=== PATIENT | male | born 1995 | race Caucasian/White ===

== ENCOUNTER 2017-03-04 22:28 | Emergency (ER) | payer MEDICAID ==
[2017-03-04] MEDS ORDERED: Ondansetron 4 MG/2 ML SDV IVPUSH ONE (22:56)
[2017-03-04] MEDS ORDERED: LORazepam 2 MG/ML MDV IVPUSH ONE ×2 (22:56→23:42)
[2017-03-04] MEDS ORDERED: Sodium Chloride 0.9% 1,000 ML IV SCH (23:00)
--- NOTE | 2017-03-04 23:20 | EDM.PDOCBH ---
ED HPI GENERAL MEDICAL PROBLEM - General Chief Complaint: Drug or Alcohol Abuse Stated Complaint: HEART Time Seen by Provider: 03/04/17 22:57 Source of Information: Reports: Patient History Limitations: Reports: No Limitations - History of Present Illness INITIAL COMMENTS - FREE TEXT/NARRATIVE: pt arrived hyperventilating and feeling tingly in his hands and arms. He did some me lso drank about 8 drinks. He feels like his heart is pounding and he has tightness in his chest..He also smoked alot of pot throughout the day. Onset: Today Duration: Hour(s): Location: Reports: Chest Associated Symptoms: Reports: Chest Pain, Shortness of Breath, Other (pt is hyperventilating and he is feeling tightness in his chest. ) Chest Pain Score (Numeric/FACES): 4 - Related Data Allergies Allergy/AdvReac Type Severity Reaction Status Date / Time No Known Allergies Allergy Verified 03/04/17 22:42 Home Meds: Home Meds NK [No Known Home Meds] 03/04/17 [History] Past Medical History - Past Health History Medical/Surgical History: Denies Medical/Surgical History Social & Family History - Tobacco Use Smoking Status *Q: Current Every Day Smoker Years of Tobacco use: 6 Packs/Tins Daily: 0.5 - Recreational Drug Use Recreational Drug Use: Yes Drug Use in Last 12 Months: Yes Recreational Drug Type: Reports: Marijuana/Hashish, Methamphetamine Recreational Drug Use Frequency: Weekly ED ROS GENERAL - Review of Systems Review Of Systems: See Below Constitutional: Reports: No Symptoms HEENT: Reports: No Symptoms Respiratory: Reports: Shortness of Breath Cardiovascular: Reports: Palpitations, Other (pt feels like his heart is pounding alot. ) Endocrine: Reports: No Symptoms GI/Abdominal: Reports: No Symptoms : Reports: No Symptoms Musculoskeletal: Reports: No Symptoms Skin: Reports: No Symptoms Neurological: Reports: No Symptoms ED EXAM, BEHAVIORAL HEALTH - Physical Exam Exam: See Below Text/Narrative:: pt drank today, did meth and smoked alot of marajauna. He is here very sob and he is obviously hyprventilating. . He was complaining of tingling in both arms. He was extremely hyper. Exam Limited By: No Limitations General Appearance: Alert, Anxious, Mild Distress, Other (pupils equal and reactive to lite. ) Ears: Normal TMs Nose: Normal Inspection Head: Atraumatic Neck: Normal Inspection Respiratory/Chest: No Respiratory Distress, Other (pt was hyperventilating. ) Cardiovascular: Regular Rate, Rhythm, Tachycardia GI/Abdominal: Soft, Non-Tender, Other (pt was feeling nauseated. ) (Male) Exam: Deferred Rectal (Males) Exam: Deferred Back Exam: Normal Inspection Extremities: Normal Inspection Neurological: Alert, Normal Cognition, Oriented x 3 Psychiatric: Alert, Normal Cognition, Agitated COURSE, BEHAVIORAL HEALTH COMP - Course Vital Signs: Last Vital Signs Temp 37.4 C 03/04/17 22:34 Pulse 73 03/04/17 23:23 Resp 16 03/05/17 00:33 BP 141/67 H 03/05/17 00:33 Pulse Ox 100 03/05/17 00:33 Orders, Labs, Meds: Active Orders 24 hr Category Date Time Status EKG Documentation Completion [RC] ASDIRECTED Care 03/04/17 22:55 Active Chest 1V Frontal [CR] Stat Exams 03/05/17 00:31 Taken DRUG SCREEN, URINE [URCHEM] Stat Lab 03/05/17 00:48 Uncollected Sodium Chloride 0.9% [Normal Saline] 1,000 ml Med 03/04/17 23:00 Active IV ASDIRECTED EKG 12 Lead [EK] Routine Ther 03/04/17 22:55 Ordered Medication Orders Sodium Chloride (Normal Saline) 1,000 mls @ 999 mls/hr IV ASDIRECTED [facility] Last Admin: 03/04/17 23:14 Dose: 999 mls/hr Laboratory Tests 03/04/17 03/04/17 03/04/17 Range/Units 23:03 23:03 23:03 WBC 7.7 (4.5-11.0) K/uL RBC 4.45 (4.30-5.90) M/uL Hgb 13.6 (12.0-15.0) g/dL Hct 39.1 L (40.0-54.0) % MCV 88 (80-98) fL MCH 31 (27-31) pg MCHC 35 (32-36) % Plt Count 217 (150-400) K/uL Neut % (Auto) 41 (36-66) % Lymph % (Auto) 47 H (24-44) % [place] % (Auto) 9 H (2-6) % Eos % (Auto) 1 L (2-4) % Baso % (Auto) 1 (0-1) % Sodium 142 (140-148) mmol/L Potassium 3.6 (3.6-5.2) mmol/L Chloride 107 (100-108) mmol/L Carbon Dioxide 25 (21-32) mmol/L Anion Gap 10.4 (5.0-14.0) mmol/L BUN 19 H (7-18) mg/dL Creatinine 0.8 (0.8-1.3) mg/dL Est Cr Clr Drug Dosing 124.78 mL/min Estimated GFR (MDRD) > 60 (>60) Glucose 113 H (74-106) mg/dL Calcium 8.7 (8.5-10.1) mg/dL Total Bilirubin 0.4 (0.2-1.0) mg/dL AST 22 (15-37) U/L ALT 41 (12-78) U/L Alkaline Phosphatase 51 (46-116) U/L Troponin I < 0.017 (0.000-0.056) ng/mL Total Protein 7.2 (6.4-8.2) g/dL Albumin 4.1 (3.4-5.0) g/dL Globulin 3.1 (2.3-3.5) g/dL Albumin/Globulin Ratio 1.3 (1.2-2.2) Urine Color Urine Appearance Urine pH (4.5-8.0) Ur Specific [place] (1.008-1.030) Urine Protein (NEGATIVE) mg/dL Urine Glucose (UA) (NEGATIVE) mg/dL Urine Ketones (NEGATIVE) mg/dL Urine Occult Blood (NEGATIVE) Urine Nitrite (NEGAITVE) Urine Bilirubin (NEGATIVE) Urine Urobilinogen (NORMAL) mg/dL Ur Leukocyte Esterase (NEGATIVE) Urine RBC (0-5) Urine WBC (0-5) Ur Epithelial Cells Amorphous Sediment Urine Bacteria Urine Mucus Ethyl Alcohol mg/dL 03/04/17 03/04/17 Range/Units 23:30 23:47 WBC (4.5-11.0) K/uL RBC (4.30-5.90) M/uL Hgb (12.0-15.0) g/dL Hct (40.0-54.0) % MCV (80-98) fL MCH (27-31) pg MCHC (32-36) % Plt Count (150-400) K/uL Neut % (Auto) (36-66) % Lymph % (Auto) (24-44) % [place] % (Auto) (2-6) % Eos % (Auto) (2-4) % Baso % (Auto) (0-1) % Sodium (140-148) mmol/L Potassium (3.6-5.2) mmol/L Chloride (100-108) mmol/L Carbon Dioxide (21-32) mmol/L Anion Gap (5.0-14.0) mmol/L BUN (7-18) mg/dL Creatinine (0.8-1.3) mg/dL Est Cr Clr Drug Dosing mL/min Estimated GFR (MDRD) (>60) Glucose (74-106) mg/dL Calcium (8.5-10.1) mg/dL Total Bilirubin (0.2-1.0) mg/dL AST (15-37) U/L ALT (12-78) U/L Alkaline Phosphatase (46-116) U/L Troponin I (0.000-0.056) ng/mL Total Protein (6.4-8.2) g/dL Albumin (3.4-5.0) g/dL Globulin (2.3-3.5) g/dL Albumin/Globulin Ratio (1.2-2.2) Urine Color Yellow Urine Appearance Clear Urine pH 6.0 (4.5-8.0) Ur Specific [place] 1.020 (1.008-1.030) Urine Protein Negative (NEGATIVE) mg/dL Urine Glucose (UA) Normal (NEGATIVE) mg/dL Urine Ketones Negative (NEGATIVE) mg/dL Urine Occult Blood Negative (NEGATIVE) Urine Nitrite Negative (NEGAITVE) Urine Bilirubin Negative (NEGATIVE) Urine Urobilinogen Normal (NORMAL) mg/dL Ur Leukocyte Esterase Negative (NEGATIVE) Urine RBC Not seen (0-5) Urine WBC Not seen (0-5) Ur Epithelial Cells Not seen Amorphous Sediment Not seen Urine Bacteria Not seen Urine Mucus Not seen Ethyl Alcohol < 3 mg/dL Medications Generic Name Dose Route Start Last Admin Trade Name Freq PRN Reason Stop Dose Admin Sodium Chloride 1,000 mls @ 999 mls/hr 03/04/17 23:00 03/04/17 23:14 Normal Saline IV 999 mls/hr ASDIRECTED [facility] Administration Discontinued Medications Generic Name Dose Route Start Last Admin Trade Name Julius PRN Reason Stop Dose Admin Ketorolac Tromethamine 30 mg 03/04/17 23:57 03/05/17 00:09 Toradol IVPUSH 03/04/17 23:58 30 mg ONETIME ONE Administration Lorazepam 0.5 mg 03/04/17 22:56 03/04/17 23:18 Ativan IVPUSH 03/04/17 22:57 0.5 mg ONETIME ONE Administration Lorazepam 0.5 mg 03/04/17 23:42 03/04/17 23:52 Ativan IVPUSH 03/04/17 23:43 0.5 mg ONETIME ONE Administration Ondansetron HCl 4 mg 03/04/17 22:56 03/04/17 23:15 Zofran IVPUSH 03/04/17 22:57 4 mg ONETIME ONE Administration Medical Clearance: 03/05/17 00:51 pt was found to have a normal ekg. His cardiac enzymes are normal. He was given a mg of ativan and he has calmed down good with his breathing. He was given a liter of fluid. Departure - Departure Time of Disposition: 01:07 Disposition: Home, Self-Care 01 Condition: Fair Clinical Impression: Methamphetamine abuse, Cannabis abuse - Discharge Information Referrals: PCP,None [Primary Care Provider] - Forms: ED Department Discharge Care Plan Goals: avoid using street drugs, push fluids, tylenol for chest tightness. - My Orders Last 24 Hours: My Active Orders 03/04/17 22:55 EKG Documentation Completion [RC] ASDIRECTED EKG 12 Lead [EK] Routine 03/04/17 23:00 Sodium Chloride 0.9% [Normal Saline] 1,000 ml IV ASDIRECTED 03/05/17 00:31 Chest 1V Frontal [CR] Stat 03/05/17 00:48 DRUG SCREEN, URINE [URCHEM] Stat - Assessment/Plan Last 24 Hours: My Active Orders 03/04/17 22:55 EKG Documentation Completion [RC] ASDIRECTED EKG 12 Lead [EK] Routine 03/04/17 23:00 Sodium Chloride 0.9% [Normal Saline] 1,000 ml IV ASDIRECTED 03/05/17 00:31 Chest 1V Frontal [CR] Stat 03/05/17 00:48 DRUG SCREEN, URINE [URCHEM] Stat
[2017-03-04 23:24] VITALS: BP 141/67
[2017-03-04] MEDS ORDERED: Ketorolac 30 MG/ML SDV IVPUSH ONE (23:57)
--- NOTE | 2017-03-07 08:56 | CR ---
Chest 1V Frontal INDICATION: sob FINDINGS: Negative AP portable chest x-ray.
== END 2017-03-05 01:35 | disposition home or self-care (01) ==
LOC: JP.ED 22:28
DX: F12.10 Cannabis abuse, uncomplicated (principal); F15.10 Other stimulant abuse, uncomplicated; F17.210 Nicotine dependence, cigarettes, uncomplicated
CPT/HCPCS: 36415; 71010; 80053; 80305; 81001; 84484; 85025; 93005; 96361; 96374; 96375; 96376; 99285; G0480; J1885; J2060; J2405; J7040; 93010; 99284

== ENCOUNTER 2017-03-05 20:54 | Emergency (ER) | payer MEDICAID ==
[2017-03-05] MEDS ORDERED: LORazepam 1 MG Tab PO ONE (22:04)
--- NOTE | 2017-03-05 23:23 | EDM.PDOC ---
ED HPI GENERAL MEDICAL PROBLEM - General Chief Complaint: Chest Pain Stated Complaint: CHEST PAIN Time Seen by Provider: 03/05/17 21:05 Source of Information: Reports: Patient History Limitations: Reports: Intoxication - History of Present Illness INITIAL COMMENTS - FREE TEXT/NARRATIVE: Patient returns to emergency department complaining of recurrent chest tightness and anxiety after smoking marijuana. Patient is limited historian-- quite tangential in speech w/ paucity of content and slow to respond c/w his history of recent marijuana use. He was seen last night for the exact same complaint after using marijuana and methamphetamine. Patient is an infrequent user of meth, but has a long history of marijuana abuse, and a remote history of prescription drub abuse, no history of IVDU. He reports symptoms since he smoked marijuana today about 1800. He describes chest tightness and pressure, hung. when he tried to sleep. Stated it was like "..something sitting on my chest." Symptoms are lower left chest without radiation or migration. No respiphasic pain, no change with exertion or rest, excepting that it was acutely worse when he was trying to fall asleep and was becoming increasingly anxious over a concern of a lump on his left testicle. He noted nausea when he becomes anxious. He made himself vomit, thinking it would improve his symptoms. He also tried self-medicating w/ EtOH, drinking 6 shots. He seems to have had some residual anxiety from last nights episode as well, as he started drinking at ~9a.m. He states he was told by his mother that he had a heart murmur as a child, possibly at , but is otherwise unable to recall any details of what was told of him. He had no restrictions or symptoms growing up that he recalls, and no history of heart surgery. He does not know if he has ever had an echocardiogram. He denies any history of exertional chest pain, syncope, or palpitations. He has poor exercise tolerance, stating he becomes winded if he has to run a half mile. He denies orthopnea, PND, fatigue, nocturia, or pedal edema. He states chest pressure last night was relieved. Duration: Intermittent, Recurring, Waxing/Waning Location: Reports: Chest Quality: Reports: Pressure, Same as Previous Episode. Denies: Burning, Sharp Improves with: Reports: None Worsens with: Reports: Rest Context: Denies: Exercise Associated Symptoms: Reports: Diaphoresis, Nausea/Vomiting. Denies: Confusion, Cough, Fever/Chills, Headaches, Loss of Appetite, Malaise, Seizure, Shortness of Breath, Syncope Left Chest Pain Score (Numeric/FACES): 4 - Related Data Allergies Allergy/AdvReac Type Severity Reaction Status Date / Time No Known Allergies Allergy Verified 03/05/17 21:21 Home Meds: Home Meds NK [No Known Home Meds] 03/04/17 [History] Past Medical History - Past Health History Medical/Surgical History: Denies Medical/Surgical History Other Psychiatric History: DRUG AND ALCOHOL ABUSE Social & Family History - Tobacco Use Smoking Status *Q: Unknown Ever Smoked Years of Tobacco use: 6 Packs/Tins Daily: 0.5 - Recreational Drug Use Recreational Drug Use: Yes Drug Use in Last 12 Months: Yes Recreational Drug Type: Reports: Marijuana/Hashish, Methamphetamine Recreational Drug Use Frequency: Weekly ED ROS GENERAL - Review of Systems Review Of Systems: See Below Constitutional: Denies: Fever, Chills, Malaise, Fatigue, Diaphoresis, Decreased Appetite HEENT: Reports: No Symptoms. Denies: Throat Pain Respiratory: Denies: Shortness of Breath, Wheezing, Pleuritic Chest Pain, Cough , Sputum, Hemoptysis Cardiovascular: Denies: Blood Pressure Problem, Claudication, Dyspnea on Exertion, Edema, Lightheadedness, Orthopnea, PND Endocrine: Reports: No Symptoms GI/Abdominal: Denies: Abdominal Pain, Anorexia, Black Stool, Bloody Stool, Diarrhea : Reports: Other (noted lump in L testicle x 1 mo) Musculoskeletal: Denies: Neck Pain, Shoulder Pain, Arm Pain, Back Pain Neurological: Reports: Paresthesia (noted more yesterday than today). Denies: Seizure, Syncope, Difficulty Walking Psychiatric: Reports: Anxiety. Denies: Depression Hematologic/Lymphatic: Reports: No Symptoms Immunologic: Reports: No Symptoms ED EXAM, GENERAL - Physical Exam Exam: See Below Free Text/Narrative:: Alert, oriented, but limited historian as noted. Anxious appearing but in no distress, breathing comfortably on room air. Lungs are CTA w/o rales. No JVD or HJR. Heart exam reveals a jauregui-systolic murmur, grade II, best heard with tracy over LUSB. ? radiation to R carotid A v. bruit. Murmur decreases with squatting, increased when standing, and equivocal change w/ valsalva. No precardial heave noted, and area of dullness to percussion over heart with normal size. Distal capillary refill is normal. No splinter hemorrhages. Radial, dorsalis, and posterior tibial artery pulses are normal. No evidence of pretibial/ankle/presacral edema. Scrotal exam shows a 5x5mm slightly tender soft/fleshy mass adjacent to, but clearly separate from, left testicle. Exam Limited By: Intoxication General Appearance: Alert, WD/WN, No Apparent Distress, Anxious Eye Exam: Bilateral Eye: EOMI, PERRL Ears: Normal External Exam, Normal Canal, Hearing Grossly Normal, Normal TMs Nose: Normal Inspection Throat/Mouth: Normal Inspection, Normal Lips, Normal Teeth, Normal Gums, Normal Oropharynx, Normal Voice, No Airway Compromise. No: Perioral Cyanosis Head: Atraumatic, Normocephalic. No: Facial Swelling Neck: Normal Inspection, Supple, Non-Tender, Full Range of Motion, Carotid Bruit. No: Lymphadenopathy (R), Lymphadenopathy (L), Thyromegaly Respiratory/Chest: No Respiratory Distress, Lungs Clear, Normal Breath Sounds, No Accessory Muscle Use, Chest Non-Tender. No: Respiratory Distress, Rales, Rhonchi, Wheezing, Accessory Muscle Use, Retractions, Prolonged Expiration Cardiovascular: Normal Peripheral Pulses, Regular Rate, Rhythm, No Edema, No Rub , Tachycardia, Systolic Murmur. No: JVD Peripheral Pulses: 4+: Carotid (L), Carotid (R), Radial (L), Radial (R), Posterior Tibial (L), Posterior Tibial (R), Dorsalis Pedis (L), Dorsalis Pedis ( R) GI/Abdominal: Normal Bowel Sounds, Soft, Non-Tender, No Organomegaly, No Distention, No Abnormal Bruit, No Mass, Pelvis Stable (Male) Exam: No Hernia, Normal Inspection, Cremasteric Reflex, Other (L scrotum w/ 5x5mm slightly tender soft mass ?varicoceole v. epidiumal ). No: Inguinal Lymphadenopathy, Scrotal Swelling, Scrotum Tenderness (L), Scrotum Tenderness (R), Testicular Mass, Testicular Tenderness (L), Testicular Tenderness (R) Course - Vital Signs Last Recorded V/S: Last Vital Signs Temp 37.7 C 03/05/17 21:13 Pulse 78 03/05/17 23:06 Resp 18 03/05/17 23:06 BP 125/71 03/05/17 23:06 Pulse Ox 99 03/05/17 23:06 - Orders/Labs/Meds Meds: Medications Discontinued Medications Generic Name Dose Route Start Last Admin Trade Name Julius PRN Reason Stop Dose Admin Lorazepam 1 mg 03/05/17 22:04 03/05/17 22:11 Ativan PO 03/05/17 22:05 1 mg ONETIME ONE Administration - Re-Assessments/Exams Free Text/Narrative Re-Assessment/Exam: 03/05/17 23:54 Patient much improved, appears comfortable and chest tightness all but resolved. Departure - Departure Time of Disposition: 00:08 Disposition: Home, Self-Care 01 Condition: Good Clinical Impression: Chest discomfort, Heart murmur on physical examination, Marijuana intoxication , Panic attack, Acute hyperactive cannabis intoxication delirium, Methamphetamine abuse, Abnormal ECG, Cannabis abuse Instructions: Nonspecific Chest Pain, [id number] Referrals: PCP,None [Primary Care Provider] - Forms: ED Department Discharge Additional Instructions: Do not use/abuse methamphetamine, marijuana, or other drugs or alcohol. No driving tonight or while intoxicated. Follow up with hvac instructor and urologist. Return if chest pain recurs, difficulty breathing, or other concerns. Get a regular doctor. - Assessment/Plan Assessment:: Chest pain is unlikely related to ECG findings, which may be due to cardiomyopathy, but given his age may be normal juvenile pattern. His CXR from last night shows no evidence of cardiomegaly, aorta abnormality, or CHF. His symptoms are precipitated by marijuana use with typical acute anxiety syndrome, and not suggestive of spontaneous pneumothorax. He has nothing to suggest AICS/ AMI/UA as etiology, and he does not manifest s/sx c/w PE either. His scrotal mass is c/w varicocele but cannot clearly differentiate if from his epididmus on exam. Plan: Needs an outpatient evaluation of his murmur/possible ECG abnormality by hvac instructor. He also needs to see a urologist about scrotal lump.
[2017-03-06 00:28] VITALS: BP 132/62
== END 2017-03-06 00:33 | disposition home or self-care (01) ==
LOC: JP.ED 20:54
DX: F41.0 Panic disorder [episodic paroxysmal anxiety] (principal); N50.9 Disorder of male genital organs, unspecified; R01.1 Cardiac murmur, unspecified; F12.121 Cannabis abuse with intoxication delirium; F90.9 Attention-deficit hyperactivity disorder, unspecified type; F15.10 Other stimulant abuse, uncomplicated; R94.31 Abnormal electrocardiogram [ECG] [EKG]
CPT/HCPCS: 99284; A9270; 99283

== ENCOUNTER 2017-03-06 11:50 | Emergency (ER) | payer MEDICAID ==
[2017-03-06 12:36] VITALS: BP 118/78
--- NOTE | 2017-03-06 12:36 | EDM.PDOC ---
ED HPI GENERAL MEDICAL PROBLEM - General Chief Complaint: General Stated Complaint: CHEST PAIN Time Seen by Provider: 03/06/17 12:40 Source of Information: Reports: Patient History Limitations: Reports: No Limitations - History of Present Illness INITIAL COMMENTS - FREE TEXT/NARRATIVE: 21-year-old male into the third consecutive day with anxiety and chest pain. He stopped doing methamphetamine 2 days ago. He was told yesterday that he has a heart murmur and is very scared. He has no shortness of breath. The chest pain in his lower anterior slightly on the left side, somewhat worse with breathing. Severity: Mild Upper Abdomen Pain Score (Numeric/FACES): 5 - Related Data Allergies Allergy/AdvReac Type Severity Reaction Status Date / Time No Known Allergies Allergy Verified 03/06/17 12:39 Home Meds: Home Meds NK [No Known Home Meds] 03/04/17 [History] Past Medical History - Past Health History Medical/Surgical History: Denies Medical/Surgical History Other Psychiatric History: DRUG AND ALCOHOL ABUSE Social & Family History - Tobacco Use Smoking Status *Q: Current Every Day Smoker Years of Tobacco use: 4 Packs/Tins Daily: 0.3 - Caffeine Use Caffeine Use: Reports: None - Recreational Drug Use Recreational Drug Use: Yes Drug Use in Last 12 Months: Yes Recreational Drug Type: Reports: Marijuana/Hashish, Methamphetamine Recreational Drug Use Frequency: Weekly ED ROS GENERAL - Review of Systems Review Of Systems: See Below Constitutional: Denies: Fever, Chills, Malaise, Weakness HEENT: Reports: No Symptoms Respiratory: Reports: Pleuritic Chest Pain. Denies: Shortness of Breath Cardiovascular: Reports: Chest Pain GI/Abdominal: Denies: Abdominal Pain, Nausea, Vomiting Skin: Reports: No Symptoms Neurological: Denies: Headache ED EXAM, GENERAL - Physical Exam Exam: See Below Exam Limited By: No Limitations General Appearance: Alert, Anxious Eye Exam: Bilateral Eye: Normal Inspection Respiratory/Chest: No Respiratory Distress, Lungs Clear Cardiovascular: Regular Rate, Rhythm, Systolic Murmur (Very faint systolic murmur) GI/Abdominal: Soft, Non-Tender Course - Vital Signs Last Recorded V/S: Last Vital Signs Temp 97.7 F 03/06/17 12:35 Pulse 95 03/06/17 12:35 Resp 20 03/06/17 12:35 BP 118/78 03/06/17 12:35 Pulse Ox 100 03/06/17 12:35 - Re-Assessments/Exams Free Text/Narrative Re-Assessment/Exam: 03/06/17 12:47 While the patient was being registered and evaluated by nursing, his records were reviewed for the last 2 days. No further workup is necessary and he was reassured and strongly encouraged not to do meth in the future. The very faint systolic murmur is likely physiologic and not harmful, he can follow up with his primary care for any further workup if he feels necessary. Departure - Departure Time of Disposition: 12:55 Disposition: Home, Self-Care 01 Condition: Good Clinical Impression: Atypical chest pain, Methamphetamine abuse - Discharge Information Instructions: Stimulant Use Disorder-Methamphetamines Referrals: PCP,None [Primary Care Provider] - Forms: ED Department Discharge Care Plan Goals: Increase activity as tolerated and try not to worry about symptoms. Avoid any further methamphetamine use.
== END 2017-03-06 12:54 | disposition home or self-care (01) ==
LOC: JP.ED 11:50
DX: R07.89 Other chest pain (principal); F15.10 Other stimulant abuse, uncomplicated; F17.210 Nicotine dependence, cigarettes, uncomplicated
CPT/HCPCS: 99284; 99285

== ENCOUNTER 2017-03-06 21:00 | Emergency (ER) | payer MEDICAID ==
--- NOTE | 2017-03-06 23:42 | EDM.PDOCBH ---
ED HPI GENERAL MEDICAL PROBLEM - General Chief Complaint: Chest Pain Stated Complaint: EVAL Time Seen by Provider: 03/06/17 21:30 Source of Information: Reports: Patient History Limitations: Reports: No Limitations - History of Present Illness INITIAL COMMENTS - FREE TEXT/NARRATIVE: 21-year-old male who is been in the emergency room now 4 times over the last several days, he is a regular methamphetamine user and was experiencing chest pain. Workups were negative and the patient was reassured, however he returns tonight very anxious and claiming that he may hurt himself. Now that he has actually registered and in the exam room he says he wouldn't hurt himself but needs some medicine for anxiety and depression. He wants to get started on some medication and wants to talk to somebody. He is cooperative. He has been on medicine in the past but stopped them because he wasn't sure they were working. His history and answers are not consistent, he told me that he is living with a friend and his mother lives across the street but he told the nurse that he was homeless. Onset: Unknown/Unsure Associated Symptoms: Reports: Chest Pain, Shortness of Breath (Intermittent). Denies: Cough, Headaches, Nausea/Vomiting Left Chest Pain Score (Numeric/FACES): 1 - Related Data Allergies Allergy/AdvReac Type Severity Reaction Status Date / Time No Known Allergies Allergy Verified 03/06/17 21:25 Home Meds: Home Meds NK [No Known Home Meds] 03/04/17 [History] Past Medical History - Past Health History Medical/Surgical History: Denies Medical/Surgical History Cardiovascular History: Reports: Heart Murmur Psychiatric History: Reports: Anxiety, Depression Other Psychiatric History: DRUG AND ALCOHOL ABUSE, HX OF INPT PSYCH [place] Social & Family History - Tobacco Use Smoking Status *Q: Unknown Ever Smoked Years of Tobacco use: 4 Packs/Tins Daily: 0.3 - Caffeine Use Caffeine Use: Reports: None - Recreational Drug Use Recreational Drug Use: Yes Drug Use in Last 12 Months: Yes Recreational Drug Type: Reports: Marijuana/Hashish, Methamphetamine Recreational Drug Use Frequency: Weekly ED ROS GENERAL - Review of Systems Review Of Systems: See Below Constitutional: Reports: Malaise. Denies: Fever, Chills Respiratory: Reports: Pleuritic Chest Pain. Denies: Shortness of Breath Cardiovascular: Reports: Chest Pain GI/Abdominal: Denies: Abdominal Pain, Hematemesis, Nausea, Vomiting Skin: Reports: No Symptoms Neurological: Denies: Headache Psychiatric: Reports: Anxiety, Depression ED EXAM, BEHAVIORAL HEALTH - Physical Exam Exam: See Below Exam Limited By: No Limitations General Appearance: Alert, No Apparent Distress Eye Exam: Bilateral Eye: Normal Inspection Respiratory/Chest: No Respiratory Distress, Lungs Clear Cardiovascular: Regular Rate, Rhythm GI/Abdominal: Non-Tender Neurological: Alert, Normal Mood/Affect, Oriented x 3 Psychiatric: Alert, Flat Affect. No: Poor Eye Contact, Uncooperative Skin Exam: Warm, Dry COURSE, BEHAVIORAL HEALTH COMP - Course Vital Signs: Last Vital Signs Temp 98.6 F 03/07/17 00:30 Pulse 60 03/07/17 00:30 Resp 15 03/07/17 00:30 BP 118/67 03/07/17 00:30 Pulse Ox 100 03/07/17 00:30 Orders, Labs, Meds: Laboratory Tests 03/06/17 03/06/17 03/06/17 Range/Units 21:53 22:00 22:00 WBC 7.9 (4.5-11.0) K/uL RBC 4.17 L (4.30-5.90) M/uL Hgb 12.6 (12.0-15.0) g/dL Hct 36.8 L (40.0-54.0) % MCV 88 (80-98) fL MCH 30 (27-31) pg MCHC 34 (32-36) % Plt Count 190 (150-400) K/uL Neut % (Auto) 62 (36-66) % Lymph % (Auto) 30 (24-44) % [place] % (Auto) 7 H (2-6) % Eos % (Auto) 1 L (2-4) % Baso % (Auto) 0 (0-1) % Sodium 144 (140-148) mmol/L Potassium 3.6 (3.6-5.2) mmol/L Chloride 108 (100-108) mmol/L Carbon Dioxide 28 (21-32) mmol/L Anion Gap 7.9 (5.0-14.0) mmol/L BUN 15 (7-18) mg/dL Creatinine 0.6 L (0.8-1.3) mg/dL Est Cr Clr Drug Dosing TNP Estimated GFR (MDRD) > 60 (>60) Glucose 93 (74-106) mg/dL Calcium 8.5 (8.5-10.1) mg/dL Urine Opiates Screen Negative (NEGATIVE) Ur Oxycodone Screen Negative (NEGATIVE) Urine Methadone Screen Negative (NEGATIVE) Ur Propoxyphene Screen Negative (NEGATIVE) Ur Barbiturates Screen Negative (NEGATIVE) Ur Tricyclics Screen Negative (NEGATIVE) Ur Phencyclidine Scrn Negative (NEGATIVE) Ur Amphetamine Screen Negative (NEGATIVE) U Methamphetamines Scrn Negative (NEGATIVE) Urine MDMA Screen Negative (NEGATIVE) U Benzodiazepines Scrn Positive H (NEGATIVE) U Cocaine Metab Screen Negative (NEGATIVE) U Marijuana (THC) Screen Positive H (NEGATIVE) Re-Assessment/Re-Exam: Urine tox screen was rechecked and it is now negative for methamphetamine. CBC, BMP were stable and normal. Crisis intervention was consulted to talk with the patient. After the crisis consultation he was recommended he be started on Lexapro and will be set up to see a local mental health provider. He does not have a plan to hurt himself. He was again reassured regarding the cardiac issues. Departure - Departure Time of Disposition: 00:30 Disposition: Home, Self-Care 01 Condition: Good Clinical Impression: Depression with anxiety, Atypical chest pain - Discharge Information Referrals: PCP,None [Primary Care Provider] - Forms: ED Department Discharge Care Plan Goals: Start Lexapro 20 mg daily as prescribed. Arrangements will be made for you to see a mental health care provider in the area.
[2017-03-07 00:46] VITALS: BP 118/67
== END 2017-03-07 00:47 | disposition home or self-care (01) ==
LOC: JP.ED 21:00
DX: F41.8 Other specified anxiety disorders (principal); F17.210 Nicotine dependence, cigarettes, uncomplicated
CPT/HCPCS: 36415; 80048; 80305; 85025; 99284; 99285

== ENCOUNTER 2017-03-18 11:39 | Emergency (ER) | payer MEDICAID ==
[2017-03-18 12:16] VITALS: BP 128/75
--- NOTE | 2017-03-18 12:27 | EDM.PDOC ---
ED HPI GENERAL MEDICAL PROBLEM - General Chief Complaint: Lower Extremity Injury/Pain Stated Complaint: BURNING IN LEFT LEG Time Seen by Provider: 03/18/17 12:15 Source of Information: Reports: Patient History Limitations: Reports: No Limitations - History of Present Illness INITIAL COMMENTS - FREE TEXT/NARRATIVE: Frederic presents today with complaints of pain to left lower extremity. He reports pain for 24 hours as burning and aching. He states he is concerned he may have a blood clot. He denies injury or trauma to the leg. Patient is not obese, has no history of DVT, no family history of DVT or bleeding/clotting disorders, no edema, erythema or difference in calf/thigh diameter. Wells score = 0 Onset: Sudden Onset Date: 03/17/17 Duration: Hour(s): Location: Reports: Lower Extremity, Left Quality: Reports: Ache, Burning Severity: Moderate Improves with: Reports: None Worsens with: Reports: Movement Associated Symptoms: Reports: No Other Symptoms Left Lower Leg Pain Score (Numeric/FACES): 4 - Related Data Allergies Allergy/AdvReac Type Severity Reaction Status Date / Time No Known Allergies Allergy Verified 03/18/17 12:14 Home Meds: Home Meds NK [No Known Home Meds] 03/04/17 [History] Past Medical History - Past Health History Medical/Surgical History: Denies Medical/Surgical History Cardiovascular History: Reports: Heart Murmur Psychiatric History: Reports: Anxiety, Depression Other Psychiatric History: DRUG AND ALCOHOL ABUSE, HX OF INPT PSYCH [place] Social & Family History - Tobacco Use Smoking Status *Q: Unknown Ever Smoked Years of Tobacco use: 4 Packs/Tins Daily: 0.3 - Caffeine Use Caffeine Use: Reports: None - Recreational Drug Use Recreational Drug Use: Yes Drug Use in Last 12 Months: Yes Recreational Drug Type: Reports: Marijuana/Hashish, Methamphetamine Recreational Drug Use Frequency: Weekly Review of Systems - Review of Systems Review Of Systems: See Below Constitutional: Reports: No Symptoms Respiratory: Denies: Shortness of Breath, Wheezing, Cough, Sputum Cardiovascular: Denies: Chest Pain, Edema, Irregular Heart Rate, Lightheadedness , Palpitations, Syncope GI/Abdominal: Reports: No Symptoms Genitourinary: Reports: No Symptoms Musculoskeletal: Reports: Leg Pain, Muscle Pain, Muscle Stiffness Skin: Denies: Bruising, Rash, Erythema, Wound Neurological: Reports: No Symptoms Psychiatric: Reports: No Symptoms ED EXAM, GENERAL - Physical Exam Exam: See Below Free Text/Narrative:: Frederic is an alert and oriented 21 year old male presenting with complaints of left lower extremity pain. He denies injury to the leg. Exam Limited By: No Limitations General Appearance: Alert, WD/WN, No Apparent Distress Eye Exam: Bilateral Eye: EOMI, Normal Inspection, PERRL Ears: Normal External Exam, Normal Canal, Hearing Grossly Normal, Normal TMs Ear Exam: Bilateral Ear: Auricle Normal, Canal Normal, TM normal Nose: Normal Inspection, Normal Mucosa, No Blood Throat/Mouth: Normal Inspection, Normal Lips, Normal Oropharynx, Normal Voice, No Airway Compromise Head: Atraumatic, Normocephalic Neck: Normal Inspection, Supple, Non-Tender, Full Range of Motion. No: Lymphadenopathy (R), Lymphadenopathy (L) Respiratory/Chest: No Respiratory Distress, Lungs Clear, Normal Breath Sounds, No Accessory Muscle Use, Chest Non-Tender Cardiovascular: Normal Peripheral Pulses, Regular Rate, Rhythm, No Edema, No Murmur, No Rub Peripheral Pulses: 2+: Radial (L), Radial (R), Popliteal (L), Popliteal (R), Dorsalis Pedis (L), Dorsalis Pedis (R) GI/Abdominal: Normal Bowel Sounds, Soft, Non-Tender, No Distention, No Mass Back Exam: Normal Inspection, Full Range of Motion. No: CVA Tenderness (R), CVA Tenderness (L) Extremities: Normal Inspection, Normal Range of Motion, Non-Tender, No Pedal Edema, Normal Capillary Refill, Other (Negative Chele sign, negative straight leg lift, equal strength all extremities, full ROM to all extremities. ) Neurological: Alert, Oriented, CN II-XII Intact, Normal Cognition, Normal Gait, Normal Reflexes, No Motor/Sensory Deficits Psychiatric: Normal Affect, Normal Mood Skin Exam: Warm, Dry, Intact, Normal Color, No Rash Lymphatic: No Adenopathy Course - Vital Signs Last Recorded V/S: Last Vital Signs Temp 36.4 C 03/18/17 12:11 Pulse 99 03/18/17 12:11 Resp 15 03/18/17 12:11 BP 128/75 03/18/17 12:11 Pulse Ox 99 03/18/17 12:11 - Orders/Labs/Meds Labs: Laboratory Tests 03/18/17 03/18/17 Range/Units 12:41 12:41 WBC 6.7 (4.5-11.0) K/uL RBC 4.85 (4.30-5.90) M/uL Hgb 14.5 (12.0-15.0) g/dL Hct 42.5 (40.0-54.0) % MCV 88 (80-98) fL MCH 30 (27-31) pg MCHC 34 (32-36) % Plt Count 205 (150-400) K/uL D-Dimer, Quantitative < 100 (0.0-400.0) ng/mL Lab work reviewed, patient informed. Assessment negative for acute findings. Patient verbalizes understanding. He was provided emotional support and education on seeking help to stay clean and sober from illicit drugs and alcohol. Departure - Departure Time of Disposition: 13:39 Disposition: Home, Self-Care 01 Condition: Good Clinical Impression: Muscle pain - Discharge Information Instructions: Muscle Strain, [id number] Referrals: Aj Wooten MD [Primary Care Provider] - Forms: ED Department Discharge Additional Instructions: Your lab work today was negative. You are suffering from muscle pain/strain. It is best for you to drink plenty of water, stretch, exercise and eat healthy. Obtain and participate in weekly counseling to assist with staying clean and free of drugs. Eat a healthy diet. - Assessment/Plan Assessment:: Muscle pain/strain Left lower extremity. Plan: D-dimer negative Patient suffering from muscle pain/strain. It is best for you to drink plenty of water, stretch, exercise and eat healthy. Obtain and participate in weekly counseling to assist with staying clean and free of drugs. Eat a healthy diet. Patient instructed that he can take ibuprofen 600mg PO three times a day and/or acetaminophen 650mg PO four times a day for pain. Patient verbalized understanding.
== END 2017-03-18 13:59 | disposition home or self-care (01) ==
LOC: JP.ED 11:39
DX: S86.912A Strain of unspecified muscle(s) and tendon(s) at lower leg level, left leg, initial encounter (principal); Z86.718 Personal history of other venous thrombosis and embolism; X58.XXXA Exposure to other specified factors, initial encounter
CPT/HCPCS: 36415; 85027; 85379; 99283; 99284

== ENCOUNTER 2017-03-20 00:57 | Emergency (ER) | payer MEDICAID ==
[2017-03-20] MEDS ORDERED: LORazepam 0.5 MG Tab PO ONE ×2 (01:46→02:38)
[2017-03-20] MEDS ORDERED: Alum Hydrox/Mag Hydrox/Simeth 15 ML, Lidocaine 2% 15 ML PO ONE ×2 (01:51)
--- NOTE | 2017-03-20 02:00 | EDM.PDOC ---
ED HPI GENERAL MEDICAL PROBLEM - General Chief Complaint: Chest Pain Stated Complaint: RAPID HEART RATE Time Seen by Provider: 03/20/17 01:52 Source of Information: Reports: Patient History Limitations: Reports: No Limitations - History of Present Illness INITIAL COMMENTS - FREE TEXT/NARRATIVE: pt arrived with pain in his chest. He felt like he had a bubble in his esophagus. Onset: Today, Other (pt used meth, marjauna, opiates. ) Duration: Hour(s):, Resolved Prior to Arrival, Other ( Pt thought he was having a heart attack. ) Location: Reports: Chest Associated Symptoms: Reports: Other ( stabbing chest pain. ) Chest Pain Score (Numeric/FACES): 5 - Related Data Allergies Allergy/AdvReac Type Severity Reaction Status Date / Time No Known Allergies Allergy Verified 03/20/17 01:09 Home Meds: Home Meds Ramelteon [Rozerem] 1 tab PO DAILY 03/20/17 [History] Ranitidine HCl [Ranitidine] 1 tab PO DAILY 03/20/17 [History] Sertraline HCl [Sertraline HCl] 1 tab PO DAILY 03/20/17 [History] hydrOXYzine Pamoate [Hydroxyzine Pamoate] 1 tab PO DAILY 03/20/17 [History] Past Medical History - Past Health History Medical/Surgical History: Denies Medical/Surgical History Cardiovascular History: Reports: Heart Murmur Gastrointestinal History: Reports: Other (See Below) Other Gastrointestinal History: ulcers Psychiatric History: Reports: Addiction, Anxiety, Depression, Psych Hospitalization(s) Other Psychiatric History: DRUG AND ALCOHOL ABUSE, HX OF INPT PSYCH [place] Social & Family History - Tobacco Use Smoking Status *Q: Light Tobacco Smoker Years of Tobacco use: 5 Packs/Tins Daily: 0.2 - Caffeine Use Caffeine Use: Reports: None - Recreational Drug Use Recreational Drug Use: Yes Drug Use in Last 12 Months: Yes Recreational Drug Type: Reports: Marijuana/Hashish, Methamphetamine Recreational Drug Use Frequency: Daily ED ROS GENERAL - Review of Systems Review Of Systems: See Below Constitutional: Reports: No Symptoms HEENT: Reports: No Symptoms Respiratory: Reports: Other ( stabbing chest pain, ) Cardiovascular: Reports: No Symptoms Endocrine: Reports: No Symptoms GI/Abdominal: Reports: No Symptoms : Reports: No Symptoms Musculoskeletal: Reports: No Symptoms, Other ( Pt has some tenderness in his chest to palpate. ) Skin: Reports: No Symptoms ED EXAM, GENERAL - Physical Exam Exam: See Below Free Text/Narrative:: Pt arrived with stabbing chest pain in the left chest. He felt like he had a bubble in his chest. Exam Limited By: No Limitations General Appearance: Alert, Anxious, Mild Distress Ears: Normal TMs Nose: Nasal Deformity Throat/Mouth: Normal Inspection Head: Atraumatic Neck: Normal Inspection Respiratory/Chest: No Respiratory Distress Cardiovascular: Regular Rate, Rhythm, Other ( ekg was normal) GI/Abdominal: Soft, Non-Tender (Male) Exam: Deferred Rectal (Males) Exam: Deferred Back Exam: Normal Inspection Extremities: Normal Inspection Neurological: Alert, Oriented, Normal Cognition Psychiatric: Normal Affect Course - Vital Signs Last Recorded V/S: Last Vital Signs Temp 36 C 03/20/17 01:06 Pulse 71 03/20/17 02:30 Resp 18 03/20/17 02:30 BP 126/79 03/20/17 02:30 Pulse Ox 99 03/20/17 02:30 - Orders/Labs/Meds Orders: Active Orders 24 hr Category Date Time Status EKG Documentation Completion [RC] ASDIRECTED Care 03/20/17 01:01 Active EKG 12 Lead [EK] Routine Ther 03/20/17 01:01 Ordered Labs: Laboratory Tests 03/20/17 03/20/17 03/20/17 Range/Units 01:09 01:09 01:09 WBC 8.1 (4.5-11.0) K/uL RBC 4.62 (4.30-5.90) M/uL Hgb 14.2 (12.0-15.0) g/dL Hct 40.2 (40.0-54.0) % MCV 87 (80-98) fL MCH 31 (27-31) pg MCHC 35 (32-36) % Plt Count 202 (150-400) K/uL Neut % (Auto) 50 (36-66) % Lymph % (Auto) 39 (24-44) % [place] % (Auto) 9 H (2-6) % Eos % (Auto) 1 L (2-4) % Baso % (Auto) 1 (0-1) % Sodium 142 (140-148) mmol/L Potassium 4.0 (3.6-5.2) mmol/L Chloride 103 (100-108) mmol/L Carbon Dioxide 28 (21-32) mmol/L Anion Gap 11.4 (5.0-14.0) mmol/L BUN 18 (7-18) mg/dL Creatinine 0.8 (0.8-1.3) mg/dL Est Cr Clr Drug Dosing 122.68 mL/min Estimated GFR (MDRD) > 60 (>60) Glucose 85 (74-106) mg/dL Calcium 9.0 (8.5-10.1) mg/dL Total Bilirubin 0.5 (0.2-1.0) mg/dL AST 23 (15-37) U/L ALT 47 (12-78) U/L Alkaline Phosphatase 51 (46-116) U/L Creatine Kinase 142 (39-308) U/L Troponin I < 0.017 (0.000-0.056) ng/mL Total Protein 7.0 (6.4-8.2) g/dL Albumin 4.3 (3.4-5.0) g/dL Globulin 2.7 (2.3-3.5) g/dL Albumin/Globulin Ratio 1.6 (1.2-2.2) Urine Opiates Screen (NEGATIVE) Ur Oxycodone Screen (NEGATIVE) Urine Methadone Screen (NEGATIVE) Ur Propoxyphene Screen (NEGATIVE) Ur Barbiturates Screen (NEGATIVE) Ur Tricyclics Screen (NEGATIVE) Ur Phencyclidine Scrn (NEGATIVE) Ur Amphetamine Screen (NEGATIVE) U Methamphetamines Scrn (NEGATIVE) Urine MDMA Screen (NEGATIVE) U Benzodiazepines Scrn (NEGATIVE) U Cocaine Metab Screen (NEGATIVE) U Marijuana (THC) Screen (NEGATIVE) 03/20/17 Range/Units 01:24 WBC (4.5-11.0) K/uL RBC (4.30-5.90) M/uL Hgb (12.0-15.0) g/dL Hct (40.0-54.0) % MCV (80-98) fL MCH (27-31) pg MCHC (32-36) % Plt Count (150-400) K/uL Neut % (Auto) (36-66) % Lymph % (Auto) (24-44) % [place] % (Auto) (2-6) % Eos % (Auto) (2-4) % Baso % (Auto) (0-1) % Sodium (140-148) mmol/L Potassium (3.6-5.2) mmol/L Chloride (100-108) mmol/L Carbon Dioxide (21-32) mmol/L Anion Gap (5.0-14.0) mmol/L BUN (7-18) mg/dL Creatinine (0.8-1.3) mg/dL Est Cr Clr Drug Dosing mL/min Estimated GFR (MDRD) (>60) Glucose (74-106) mg/dL Calcium (8.5-10.1) mg/dL Total Bilirubin (0.2-1.0) mg/dL AST (15-37) U/L ALT (12-78) U/L Alkaline Phosphatase (46-116) U/L Creatine Kinase (39-308) U/L Troponin I (0.000-0.056) ng/mL Total Protein (6.4-8.2) g/dL Albumin (3.4-5.0) g/dL Globulin (2.3-3.5) g/dL Albumin/Globulin Ratio (1.2-2.2) Urine Opiates Screen Positive H (NEGATIVE) Ur Oxycodone Screen Negative (NEGATIVE) Urine Methadone Screen Negative (NEGATIVE) Ur Propoxyphene Screen Negative (NEGATIVE) Ur Barbiturates Screen Negative (NEGATIVE) Ur Tricyclics Screen Negative (NEGATIVE) Ur Phencyclidine Scrn Negative (NEGATIVE) Ur Amphetamine Screen Positive H (NEGATIVE) U Methamphetamines Scrn Positive H (NEGATIVE) Urine MDMA Screen Negative (NEGATIVE) U Benzodiazepines Scrn Negative (NEGATIVE) U Cocaine Metab Screen Negative (NEGATIVE) U Marijuana (THC) Screen Positive H (NEGATIVE) Meds: Medications Discontinued Medications Generic Name Dose Route Start Last Admin Trade Name Freq PRN Reason Stop Dose Admin Al Hydroxide/Mg Hydroxide 15 0 ml 03/20/17 01:51 03/20/17 02:06 ml/ Lidocaine HCl 15 ml PO 03/20/17 01:52 30 ml ONETIME ONE Administration Ketorolac Tromethamine 60 mg 03/20/17 02:38 03/20/17 02:45 Toradol IM 03/20/17 02:39 60 mg ONETIME ONE Administration Lorazepam 0.5 mg 03/20/17 01:46 03/20/17 02:05 Ativan PO 03/20/17 01:47 0.5 mg ONETIME ONE Administration Lorazepam 0.5 mg 03/20/17 02:38 03/20/17 02:45 Ativan PO 03/20/17 02:39 0.5 mg ONETIME ONE Administration - Re-Assessments/Exams Free Text/Narrative Re-Assessment/Exam: 03/20/17 03:11 pt was given gi cocktail, 1 mg of ativan, torodol 60mg im. He is more comfortable, . His lab work revealed that he used meth, opiates, and pot. He was asked if he needed help or treatment for his meth addiction. He states he only uses it infrequently. He has had 3 recent visits to the Er for chest pain. Departure - Departure Time of Disposition: 03:14 Disposition: Home, Self-Care 01 Condition: Fair Clinical Impression: Methamphetamine abuse, Atypical chest pain, Anxiety Referrals: PCP,None [Primary Care Provider] - Forms: ED Department Discharge Care Plan Goals: Stop using street drugs, get counseling for anxiety - My Orders Last 24 Hours: My Active Orders 03/20/17 01:01 EKG Documentation Completion [RC] ASDIRECTED EKG 12 Lead [EK] Routine - Assessment/Plan Last 24 Hours: My Active Orders 03/20/17 01:01 EKG Documentation Completion [RC] ASDIRECTED EKG 12 Lead [EK] Routine
[2017-03-20] MEDS ORDERED: Ketorolac 60 MG/2 ML SDV IM ONE (02:38)
[2017-03-20 02:40] VITALS: BP 126/79
== END 2017-03-20 03:27 | disposition home or self-care (01) ==
LOC: JP.ED 00:57
DX: R07.89 Other chest pain (principal); F41.9 Anxiety disorder, unspecified; F15.10 Other stimulant abuse, uncomplicated; F17.210 Nicotine dependence, cigarettes, uncomplicated; Z79.899 Other long term (current) drug therapy
CPT/HCPCS: 36415; 80053; 80305; 82550; 84484; 85025; 93005; 96372; 99285; A9270; J1885; 93010; 99284

== ENCOUNTER 2017-08-31 10:39 | Emergency (ER) | payer MEDICAID ==
[2017-08-31 10:52] VITALS: BP 124/57
--- NOTE | 2017-08-31 11:25 | EDM.PDOC ---
ED HPI GENERAL MEDICAL PROBLEM - General Chief Complaint: Drug or Alcohol Abuse Stated Complaint: DRUG ADDICT/HAVING KIDNEY PAIN Time Seen by Provider: 08/31/17 11:00 Source of Information: Reports: Patient, Family History Limitations: Reports: No Limitations - History of Present Illness INITIAL COMMENTS - FREE TEXT/NARRATIVE: 21-year-old male complaining of back spasms and pain for the last 12 hours. He is actively using methamphetamine. No dysuria. No fevers or chills. Denies nausea or vomiting. Onset: Gradual (Over the past 12 hours) Location: Reports: Back Right Flank Pain Score (Numeric/FACES): 10 - Related Data Allergies Allergy/AdvReac Type Severity Reaction Status Date / Time meperidine [From Demerol] Allergy Difficulty Verified 08/31/17 11:10 Breathing Past Medical History - Past Health History Medical/Surgical History: Denies Medical/Surgical History Cardiovascular History: Reports: Heart Murmur Gastrointestinal History: Reports: Other (See Below) Other Gastrointestinal History: ulcers Psychiatric History: Reports: Addiction, Anxiety, Depression, Panic Attack, Psych Hospitalization(s) Other Psychiatric History: DRUG AND ALCOHOL ABUSE, HX OF INPT PSYCH [place] Social & Family History - Tobacco Use Smoking Status *Q: Current Every Day Smoker Years of Tobacco use: 4 Packs/Tins Daily: 1 - Caffeine Use Caffeine Use: Reports: None - Recreational Drug Use Recreational Drug Use: Yes Drug Use in Last 12 Months: Yes Recreational Drug Type: Reports: Marijuana/Hashish, Methamphetamine, Other (see below) Other Recreational Drug Type: u-15 took 2 every 1/h hour Recreational Drug Use Frequency: Daily ED ROS GENERAL - Review of Systems Review Of Systems: See Below Constitutional: Reports: Malaise. Denies: Fever Respiratory: Denies: Shortness of Breath, Pleuritic Chest Pain, Cough Cardiovascular: Denies: Chest Pain GI/Abdominal: Reports: Nausea. Denies: Abdominal Pain, Vomiting : Reports: Flank Pain (Bilaterally). Denies: Dysuria Musculoskeletal: Reports: Back Pain Skin: Reports: Bruising (Patient has a linear bruise on his right bicep from recent IV drug use) Neurological: Denies: Headache ED EXAM, GENERAL - Physical Exam Exam: See Below Exam Limited By: No Limitations General Appearance: Mild Distress (Patient is moaning, writhing in a moderate amount of discomfort) Eye Exam: Bilateral Eye: EOMI Head: Atraumatic Neck: Supple Respiratory/Chest: No Respiratory Distress, Lungs Clear GI/Abdominal: Soft, Non-Tender Back Exam: Muscle Spasm, Other (Any palpation of the strap muscles of the back, even light palpation causes him to wince in pain.) Course - Vital Signs Last Recorded V/S: Last Vital Signs Temp 99.9 F 08/31/17 10:57 Pulse 98 08/31/17 10:57 Resp 18 08/31/17 10:57 BP 124/57 L 08/31/17 10:57 Pulse Ox 107 H 08/31/17 10:57 - Orders/Labs/Meds Labs: Laboratory Tests 08/31/17 08/31/17 08/31/17 Range/Units 11:41 11:41 11:47 WBC 10.9 (4.5-11.0) K/uL RBC 4.74 (4.30-5.90) M/uL Hgb 14.1 (12.0-15.0) g/dL Hct 40.8 (40.0-54.0) % MCV 86 (80-98) fL MCH 30 (27-31) pg MCHC 35 (32-36) % Plt Count 231 (150-400) K/uL Neut % (Auto) 91 H (36-66) % Lymph % (Auto) 5 L (24-44) % [place] % (Auto) 4 (2-6) % Eos % (Auto) 0 L (2-4) % Baso % (Auto) 0 (0-1) % Sodium (140-148) mmol/L Potassium (3.6-5.2) mmol/L Chloride (100-108) mmol/L Carbon Dioxide (21-32) mmol/L Anion Gap (5.0-14.0) mmol/L BUN (7-18) mg/dL Creatinine (0.8-1.3) mg/dL Est Cr Clr Drug Dosing mL/min Estimated GFR (MDRD) (>60) BUN/Creatinine Ratio Glucose (74-106) mg/dL Calcium (8.5-10.1) mg/dL Total Bilirubin (0.2-1.0) mg/dL AST (15-37) U/L ALT (12-78) U/L Alkaline Phosphatase (46-116) U/L Total Protein (6.4-8.2) g/dL Albumin (3.4-5.0) g/dL Globulin (2.3-3.5) g/dL Albumin/Globulin Ratio (1.2-2.2) Urine Color Urine Appearance Urine pH (4.5-8.0) Ur Specific [place] (1.008-1.030) Urine Protein (NEGATIVE) mg/dL Urine Glucose (UA) (NEGATIVE) mg/dL Urine Ketones (NEGATIVE) mg/dL Urine Occult Blood (NEGATIVE) Urine Nitrite (NEGAITVE) Urine Bilirubin (NEGATIVE) Urine Urobilinogen (NORMAL) mg/dL Ur Leukocyte Esterase (NEGATIVE) Urine RBC (0-5) Urine WBC (0-5) Ur Epithelial Cells Amorphous Sediment Urine Bacteria Urine Mucus Urine Opiates Screen Negative (NEGATIVE) Ur Oxycodone Screen Positive H (NEGATIVE) Urine Methadone Screen Negative (NEGATIVE) Ur Propoxyphene Screen Negative (NEGATIVE) Ur Barbiturates Screen Negative (NEGATIVE) Ur Tricyclics Screen Negative (NEGATIVE) Ur Phencyclidine Scrn Negative (NEGATIVE) Ur Amphetamine Screen Positive H (NEGATIVE) U Methamphetamines Scrn Positive H (NEGATIVE) Urine MDMA Screen Negative (NEGATIVE) U Benzodiazepines Scrn Negative (NEGATIVE) U Cocaine Metab Screen Negative (NEGATIVE) U Marijuana (THC) Screen Positive H (NEGATIVE) 08/31/17 Range/Units 11:48 WBC (4.5-11.0) K/uL RBC (4.30-5.90) M/uL Hgb (12.0-15.0) g/dL Hct (40.0-54.0) % MCV (80-98) fL MCH (27-31) pg MCHC (32-36) % Plt Count (150-400) K/uL Neut % (Auto) (36-66) % Lymph % (Auto) (24-44) % [place] % (Auto) (2-6) % Eos % (Auto) (2-4) % Baso % (Auto) (0-1) % Sodium (140-148) mmol/L Potassium (3.6-5.2) mmol/L Chloride (100-108) mmol/L Carbon Dioxide (21-32) mmol/L Anion Gap (5.0-14.0) mmol/L BUN (7-18) mg/dL Creatinine (0.8-1.3) mg/dL Est Cr Clr Drug Dosing mL/min Estimated GFR (MDRD) (>60) BUN/Creatinine Ratio Glucose (74-106) mg/dL Calcium (8.5-10.1) mg/dL Total Bilirubin (0.2-1.0) mg/dL AST (15-37) U/L ALT (12-78) U/L Alkaline Phosphatase (46-116) U/L Total Protein (6.4-8.2) g/dL Albumin (3.4-5.0) g/dL Globulin (2.3-3.5) g/dL Albumin/Globulin Ratio (1.2-2.2) Urine Color Yellow Urine Appearance Clear Urine pH 5.0 (4.5-8.0) Ur Specific [place] 1.020 (1.008-1.030) Urine Protein Negative (NEGATIVE) mg/dL Urine Glucose (UA) Normal (NEGATIVE) mg/dL Urine Ketones Negative (NEGATIVE) mg/dL Urine Occult Blood Negative (NEGATIVE) Urine Nitrite Negative (NEGAITVE) Urine Bilirubin Small (NEGATIVE) Urine Urobilinogen Normal (NORMAL) mg/dL Ur Leukocyte Esterase Negative (NEGATIVE) Urine RBC 0-5 (0-5) Urine WBC Not seen (0-5) Ur Epithelial Cells Not seen Amorphous Sediment Rare Urine Bacteria Not seen Urine Mucus Many Urine Opiates Screen (NEGATIVE) Ur Oxycodone Screen (NEGATIVE) Urine Methadone Screen (NEGATIVE) Ur Propoxyphene Screen (NEGATIVE) Ur Barbiturates Screen (NEGATIVE) Ur Tricyclics Screen (NEGATIVE) Ur Phencyclidine Scrn (NEGATIVE) Ur Amphetamine Screen (NEGATIVE) U Methamphetamines Scrn (NEGATIVE) Urine MDMA Screen (NEGATIVE) U Benzodiazepines Scrn (NEGATIVE) U Cocaine Metab Screen (NEGATIVE) U Marijuana (THC) Screen (NEGATIVE) Meds: Medications Discontinued Medications Generic Name Dose Route Start Last Admin Trade Name Freq PRN Reason Stop Dose Admin Sodium Chloride 1,000 mls @ 1,000 mls/hr 08/31/17 11:30 08/31/17 11:33 Normal Saline IV 1,000 mls/hr ASDIRECTED MERCEDES Administration Ketorolac Tromethamine 30 mg 08/31/17 12:30 08/31/17 12:38 Toradol IVPUSH 08/31/17 12:31 30 mg ONETIME ONE Administration Lorazepam 1 mg 08/31/17 11:35 08/31/17 11:45 Ativan IVPUSH 08/31/17 11:36 1 mg ONETIME ONE Administration - Re-Assessments/Exams Free Text/Narrative Re-Assessment/Exam: 08/31/17 12:24 An IV was started and the patient was given 1 L of normal saline bolus. A urine was obtained for urine drug screen, which was positive for oxycodone and methamphetamine. Also marijuana. CBC was normal. 08/31/17 12:32 CMP returned completely normal. 30 mg of IV Toradol was given, and it was explained to the patient that he is just couldn't have to wait for the illicit drugs to wear off. Continue drinking lots of water. Departure - Departure Time of Disposition: 12:49 Disposition: Home, Self-Care 01 Condition: Fair Clinical Impression: Methamphetamine abuse, Muscle spasm of back - Discharge Information Instructions: Stimulant Use Disorder-Methamphetamines Referrals: PCP,None [Primary Care Provider] - Forms: ED Department Discharge Care Plan Goals: Avoid abusing illicit drugs in the future. Drink lots of water and increase diet and activity as tolerated. You may benefit from some ibuprofen or naproxen.
[2017-08-31] MEDS ORDERED: Sodium Chloride 0.9% 1,000 ML IV SCH (11:30)
[2017-08-31] MEDS ORDERED: LORazepam 2 MG/ML SDV IVPUSH ONE (11:35)
[2017-08-31] MEDS ORDERED: Ketorolac 30 MG/ML SDV IVPUSH ONE (12:30)
== END 2017-08-31 12:49 | disposition home or self-care (01) ==
LOC: JP.ED 10:39
DX: M62.830 Muscle spasm of back (principal); F15.10 Other stimulant abuse, uncomplicated; F17.210 Nicotine dependence, cigarettes, uncomplicated; Z88.8 Allergy status to other drugs, medicaments and biological substances
CPT/HCPCS: 36415; 80053; 80305; 81001; 85025; 96361; 96374; 96375; 99284; J1885; J2060; J7040